=== PATIENT | female | born 1975 | race Caucasian/White ===

== ENCOUNTER 2018-10-24 19:30 | Emergency (ER) | payer SELFPAY ==
[2018-10-24] MEDS ORDERED: BENZONATATE 100 MG CAP PO ONE (19:42)
[2018-10-24] MEDS ORDERED: PROMETHAZINE HCL 25 MG TAB PO ONE (19:43)
[2018-10-24] MEDS ORDERED: ACETAMINOPHEN 500 MG TAB PO ONE (19:43)
--- NOTE | 2018-10-24 19:44 | EDPHY ---
H & P Stated Complaint: "COUGH UNTIL I PUKE, YELLOW SPUTUM" PUKE X 1, STARTED LAST NIGHT Time Seen by Provider: 10/24/18 19:40 HPI/ROS: HPI: This is a 43-year-old female who presents with Chief Complaint: "COUGH UNTIL I PUKE, YELLOW SPUTUM" PUKE X 1, STARTED LAST NIGHT Location: Chest Quality: Cough Duration: Since last night Signs and Symptoms: no fever, no nausea, no vomiting, no diarrhea, no urinary symptoms, no chest pain, no shortness of breath, no wheezing, + productive yellow sputum cough, no sore throat, no neck stiffness, no joint pain, no swollen glands, no ear pain, no rash Timing: Acute, intermittent episodes Severity: Moderate Context: Patient is generally healthy, nonsmoker, presents with sudden onset last night of productive cough of yellow sputum that is described as harsh and frequent. She reports that she coughs so hard that she vomited x1. She took Benadryl this afternoon with mild improvement in her symptoms. 2 weeks ago she was diagnosed with bronchitis and completed a 7 day course of Augmentin. She completed the Augmentin last week. She denies any recent long distance travel, history of lung disease. Modifying Factors: See above Comment: ROS: A comprehensive 10 system review of systems is otherwise negative aside from elements mentioned in the history of present illness. MEDICAL/SURGICAL/SOCIAL HISTORY: Medical history: Generally healthy. Does not take any regular medications. Surgical history: eye muscle surgery, cholecystectomy, sinus surgery Social history: . Taoist. Nonsmoker. Family history noncontributory. CONSTITUTIONAL: Nontoxic-appearing middle-aged white female, awake and alert, no obvious distress HEENT: Atraumatic and normocephalic, PERRL, EOMI. Nares patent; no rhinorrhea; no nasal mucosal edema. Tympanic membranes clear. Oropharynx clear, no exudate and moist pink mucosa. Airway patent. No lymphadenopathy. No meningismus. Cardiovascular: Normal S1/S2, regular rate, regular rhythm, without murmur rub or gallop. PULMONARY/CHEST: Symmetrical and nontender. Clear to auscultation bilaterally. Good air movement. No accessory muscle usage. Dry cough noted. ABDOMEN: Soft, nondistended, nontender, no rebound, no guarding, no peritoneal signs, no masses or organomegaly. No CVAT. EXTREMITIES: 2/2 pulses, strength 5/5, no deformities, no clubbing, no cyanosis or edema. NEUROLOGICAL: no focal neuro deficits. GCS 15. SKIN: Warm and dry, no erythema. no rash. Good capillary refill. Source: Patient Exam Limitations: No limitations - Personal History LMP (Females 10-55): 15-21 Days Ago Current Tetanus Diphtheria and Acellular Pertussis (TDAP): Yes - Medical/Surgical History Hx Asthma: No Hx Chronic Respiratory Disease: No Hx Diabetes: No Hx Cardiac Disease: No Hx Renal Disease: No Hx Cirrhosis: No Hx Alcoholism: No Hx HIV/AIDS: No Hx Splenectomy or Spleen Trauma: No Other PMH: eye muscle surgery, cholecystectomy, sinus surgery - Social History Smoking Status: Never smoked Constitutional: Initial Vital Signs Temperature (C) 36.8 C 10/24/18 19:34 Heart Rate 112 H 10/24/18 19:34 Respiratory Rate 20 10/24/18 19:34 Blood Pressure 133/82 H 10/24/18 19:34 O2 Sat (%) 96 10/24/18 19:34 O2 Delivery Mode Room Air Allergies/Adverse Reactions: No Known Allergies Allergy (Verified 10/24/18 19:33) Home Medications: Medication Instructions Recorded Codeine Phosphate/Guaifenesin 10 ml PO Q6 #240 ml 10/24/18 [Guaifen-Codeine 200-20 mg/10Ml] predniSONE [predniSONE TAPER] 10 mg PO DAILY 6 Days ea 10/24/18 Medical Decision Making - Diagnostics Imaging Results: Imaging Impressions Chest X-Ray 10/24/18 19:43 Impression: 1. Bronchitis/airways disease. 2. No definite focal pneumonia. ED Course/Re-evaluation: Vital signs reviewed and show no fever and mild tachycardia. Chest x-ray ordered and my read via PAC shows no opacity, no effusion, no pneumothorax. Patient given Tessalon Perles 200 mg, Tylenol 1000 mg, promethazine 6.25 mg Patient given a prescription for antitussives and steroid taper as I believe that this is viral in nature. This patient was seen under the supervision of my secondary supervising physician. I evaluated care for this patient independently. Differential Diagnosis: Differential diagnosis includes but is not limited to pneumonia, pleural effusion, pneumothorax, bronchitis, influenza. - Data Points Medications Given: Discontinued Medications Acetaminophen (Tylenol) 1,000 mg PO EDNOW ONE Stop: 10/24/18 19:44 Last Admin: 10/24/18 19:51 Dose: Not Given Benzonatate (Tessalon Pearles) 200 mg PO EDNOW ONE Stop: 10/24/18 19:43 Last Admin: 10/24/18 19:51 Dose: 200 mg Promethazine HCl (Phenergan) 6.25 mg PO ONCE ONE Stop: 10/24/18 19:44 Last Admin: 10/24/18 19:51 Dose: 6.25 mg Departure - Departure Disposition: Home, Routine, Self-Care Clinical Impression: Acute bronchitis, viral Condition: Good Instructions: Acute Bronchitis (ED) Additional Instructions: Rest as much as possible until you are feeling better. Consume a minimum of 8-10 glasses of water or electrolyte fluid replacement drinks that include Gatorade, Powerade, Pedialyte. Take cough syrup every 6 hr as needed for cough. Take Steroid taper as directed for bronchospasm. Chest x-ray today does not show any signs of pneumonia. It appears that you have a viral bronchitis and antibiotics are not indicated. Referrals: [facility],. [Clinic] - As per Instructions Prescriptions: Codeine Phosphate/Guaifenesin [Guaifen-Codeine 200-20 mg/10Ml] 10 ml PO Q6 #240 ml predniSONE [predniSONE TAPER] 10 mg PO DAILY 6 Days ea
[2018-10-24 20:34] VITALS: BP 137/77
== END 2018-10-24 20:33 | disposition home or self-care (01) ==
DX: J40 Bronchitis, not specified as acute or chronic (principal)

== ENCOUNTER 2018-11-01 11:17 | Emergency (ER) | payer MEDICAID ==
--- NOTE | 2018-11-01 11:40 | EDPHY ---
H & P Stated Complaint: [place] "pop" in abd 2 days ago with cough Time Seen by Provider: 11/01/18 11:26 HPI/ROS: CHIEF COMPLAINT: "I felt a pop in my abdomen" HISTORY OF PRESENT ILLNESS: 43-year-old female recovering from recent upper respiratory infection, notes she has had continued nonproductive cough, the other day when she was coughing aggressively she felt something"pop"in her right inguinal region patient continues to have pain this area with coughing. Bowel movements have been normal. Passing gas as normal. Urinary habits have been normal. No back or flank pain. No dizziness. No lightheadedness. No syncope or near syncope. No melena hematochezia. Tolerating full oral intake. PRIMARY CARE PROVIDER: REVIEW OF SYSTEMS: 10 systems reviewed and negative with the exception of the elements mentioned in the history of present illness PAST MEDICAL & SURGICAL HISTORY: No pertinent medical or surgical history SOCIAL HISTORY: Nonsmoker PHYSICAL EXAM (Prior to examination, patient consented to physical exam, hands were washed and my usual and customary physical exam procedures followed) 1) GENERAL: Well-developed, well-nourished, alert and oriented. Appears to be in no acute distress. 2) HEAD: Normocephalic, atraumatic 3) HEENT: Pupils equal, round, reactive to light bilaterally. Sclera anicteric. Nasopharynx, oropharynx, clear, no lesions. MoistDry mucous membranes. Ears bilaterally with normal tympanic membranes. 4) NECK: Full range of motion, no meningeal signs. 5) LUNGS: Clear auscultation bilaterally, no wheezes, no rhonchi, no retractions. 6) HEART: Regular rate and rhythm, no murmur, no heave, no gallop. 7) ABDOMEN (with nurse Ayla at bedside): No visible abnormality, no palpable mass, tender to palpation right inguinal region worsened patient bears down., 8) MUSCULOSKELETAL: Moving all extremities, no focal areas of tenderness, no obvious trauma. No peripheral edema or discoloration. 9) BACK: No CVA tenderness, no midline vertebral tenderness, no fluctuance, no step-off, no obvious trauma, no visual or palpable abnormality. 10) SKIN: No rash, no petechiae. 11) Psychiatric: Patient is oriented X 3, there is no agitation. DIFFERENTIAL DIAGNOSIS: In no particular order including but not limited to muscle strain, hernia, incarcerated hernia, acute appendicitis, ectopic - Personal History LMP (Females 10-55): 22-28 Days Ago Current Tetanus Diphtheria and Acellular Pertussis (TDAP): Yes - Medical/Surgical History Hx Asthma: No Hx Chronic Respiratory Disease: No Hx Diabetes: No Hx Cardiac Disease: No Hx Renal Disease: No Hx Cirrhosis: No Hx Alcoholism: No Hx HIV/AIDS: No Hx Splenectomy or Spleen Trauma: No Other PMH: eye muscle surgery, cholecystectomy, sinus surgery - Social History Smoking Status: Never smoked Constitutional: Initial Vital Signs Temperature (C) 36.9 C 11/01/18 11:18 Heart Rate 79 11/01/18 11:18 Respiratory Rate 16 11/01/18 11:18 Blood Pressure 134/8 H 11/01/18 11:18 O2 Sat (%) 97 11/01/18 11:18 O2 Delivery Mode Room Air Allergies/Adverse Reactions: No Known Allergies Allergy (Verified 11/01/18 11:18) Home Medications: Medication Instructions Recorded Benzonatate [Tessalon Pearles (RX)] 200 mg PO TID PRN #15 cap 11/01/18 Medical Decision Making - Diagnostics Imaging Results: Images reviewed myself ED Course/Re-evaluation: Patient was re-evaluated with serial examinations. I consulted at 1:15 p.m. regarding the patient's rectus abdominis hematoma. He reviewed the images. Patient with normal vital signs, normal H&H, pain controlled. He recommended abdominal binder if this provided relief for the patient and no further intervention. Today is Sunday. Patient would like to follow up next week in given Dr. Valles follow-up information. If she develops dizziness, syncope or near syncope to return to the ER. Recommend avoiding physically exertional activities. She feels comfortable being discharged all questions and concerns addressed by myself. Care of patient under supervision of secondary supervising physician Dr Montes . - Data Points Laboratory Results: Laboratory Results 11/01/18 11:44 11/01/18 11:44 Departure - Departure Disposition: Home, Routine, Self-Care Clinical Impression: Abdominal wall hematoma Condition: Good Instructions: Hematoma (ED) Additional Instructions: Avoid physically exertional activities. If you develop lightheadedness, worsening pain, seek immediate medical attention. Do not take any blood thinning medications. Referrals: Arnaldo Rangel MD [Medical Doctor] - 2-3 days, call for appt. Prescriptions: Benzonatate [Tessalon Pearles (RX)] 200 mg PO TID PRN #15 cap PRN Reason: Cough, Moderate
[2018-11-01 12:01] LABS: PLATELET COUNT 307 10^3/uL (150-400)
[2018-11-01] MEDS ORDERED: IOPAMIDOL (ISOVUE-300) 100 ML BTL ONE (12:28)
[2018-11-01 14:12] VITALS: BP 129/65
== END 2018-11-01 14:11 | disposition home or self-care (01) ==
DX: M79.81 Nontraumatic hematoma of soft tissue (principal)
CPT/HCPCS: Q9967

== ENCOUNTER 2019-02-25 03:41 | Emergency (ER) | payer MEDICAID ==
[2019-02-25 03:46] VITALS: BP 113/72
--- NOTE | 2019-02-25 03:57 | EDPHY ---
H & P Stated Complaint: R FA BUMP/"IV PLACED IN AREA JEROME 22" Time Seen by Provider: 02/25/19 03:48 HPI/ROS: Chief Complaint: Bump on left forearm HPI: 43-year-old woman had an upper lower endoscopy on the 31 of January. She had an IV placed in her left forearm for that procedure. Patient had some bruising at that site following the procedure. Was never red or warmth. This morning she noticed a bump her left forearm a became concerned about a possible blood clot. No arm swelling. No redness. No discoloration. No fevers or chills. Is mildly achy. ROS: 10 systems were reviewed and were negative except those elements noted in the HPI. PMH: Denies Social History: No smoking, no alcohol, no recreational drug use Family History: non-contributory Physical Exam: General: Awake, alert, no acute distress Left arm. Patient has a small 5 x 5 mm lesion on her left forearm along with a superficial vein. Is freely mobile. It is not fluctuant. Is not pointing. It is minimally tender. There is no erythema. Is not warm to touch. Is a firm nodule. Skin: No rash - Personal History LMP (Females 10-55): 22-28 Days Ago - Medical/Surgical History Hx Asthma: No Hx Chronic Respiratory Disease: No Hx Diabetes: No Hx Cardiac Disease: No Hx Renal Disease: No Hx Cirrhosis: No Hx Alcoholism: No Hx HIV/AIDS: No Hx Splenectomy or Spleen Trauma: No Other PMH: eye muscle surgery, cholecystectomy, sinus surgery - Social History Smoking Status: Never smoked Constitutional: Initial Vital Signs Temperature (C) 36.6 C 02/25/19 03:43 Heart Rate 92 02/25/19 03:43 Respiratory Rate 16 02/25/19 03:43 Blood Pressure 113/72 02/25/19 03:43 O2 Sat (%) 96 02/25/19 03:43 O2 Delivery Mode Room Air Allergies/Adverse Reactions: No Known Allergies Allergy (Verified 11/01/18 11:18) Home Medications: Medication Instructions Recorded Benzonatate [Tessalon Pearles (RX)] 200 mg PO TID PRN #15 cap 11/01/18 Medical Decision Making ED Course/Re-evaluation: Patient presenting with concerns about a bump her left forearm. She has a very small firm nodule along the vein which is consistent with scar tissue from her IV site placement. There is no evidence of thrombus. There is no erythema. She has normal perfusion distally. No signs of infection. The patient has been reassured. Will discharge with follow-up her primary care physician as needed. Departure - Departure Disposition: Home, Routine, Self-Care Clinical Impression: Scar tissue Condition: Good Instructions: Normal Exam (ED) Additional Instructions: Follow up with primary care physician for any concerns. Referrals: Carmen Solorzano PA [Primary Care Provider] - As per Instructions
== END 2019-02-25 03:59 | disposition home or self-care (01) ==
DX: L90.5 Scar conditions and fibrosis of skin (principal)

== ENCOUNTER 2019-02-27 02:29 | Emergency (ER) | payer MEDICAID ==
--- NOTE | 2019-02-27 02:46 | EDPHY ---
H & P Stated Complaint: right arm lump has been seen for this before Time Seen by Provider: 02/27/19 02:46 HPI/ROS: HPI CHIEF COMPLAINT: Bump right arm. HISTORY OF PRESENT ILLNESS: 43-year-old female, otherwise healthy denies any significant medical history presents emergency room the small area of induration to her right arm, no redness, no drainage, no warmth, however does cause her some discomfort. She states that she was out in [facility] and this bothers her so she went to a local emergency room in [place] where they performed an ultrasound and she was told initially they thought it was a superficial clot however there was some concern that may have been a foreign body. However on repeat ultrasound in at the emergency room she was told that cannot identify or find a foreign body. This now concerned her greatly and so she decided come the emergency room [facility] for further evaluation of this. She did have a IV catheter placed in this area for her EGD. She denies any significant pain or fever. Has localized tenderness and discomfort to the right forearm. Past Medical History: Denies significant medical history Past Surgical History: Denies significant surgical history however recent EGD. Social History: Denies drugs alcohol tobacco. Family History: Noncontributory ROS REVIEW OF SYSTEMS: 10 Systems were reviewed and negative with the exception of the elements mentioned in the history of present illness. Exam Constitutional triage nursing summary reviewed, vital signs reviewed, awake/ alert. Eyes normal conjunctivae and sclera, EOMI, PERRLA. HENT normal inspection, atraumatic, moist mucus membranes, no epistaxis, neck supple/ no meningismus, no raccoon eyes. Respiratory clear to auscultation bilaterally, normal breath sounds, no respiratory distress, no wheezing. Cardiovascular rate normal, regular rhythm, no murmur, no edema, distal pulses normal. Gastrointestinal soft, non-tender, no rebound, no guarding, normal bowel sounds, no distension, no pulsatile mass. Genitourinary no CVA tenderness. Musculoskeletal right upper extremity: Good distal pulse, good cap refill, normal sensation, no compartment syndrome. On the proximal right forearm of volar side there is a very small area of induration less than 1 cm. No redness no warmth no fluctuance. no midline vertebral tenderness, full range of motion, no calf swelling, no tenderness of extremities, no meningismus, good pulses, neurovascularly intact. Skin pink, warm, & dry, no rash, skin atraumatic. Neurologic awake, alert and oriented x 3, AAOx3, moves all 4 extremities equally, motor intact, sensory intact, CN II-XII intact, normal cerebellar, normal vision, normal speech. Psychiatric normal mood/affect. Heme/Lymph/Immune no lymphadenopathy. Differential Diagnosis: Includes but is not limited to in a particular order thrombophlebitis, phlebitis, foreign body, abscess Medical Decision Making: Plan for this patient ultrasound right upper extremity. Re-evaluation: Ultrasound of the right upper extremity performed for an area of induration, short segment of thrombosed superficial vein. Source: Patient - Personal History LMP (Females 10-55): 15-21 Days Ago Current Tetanus/Diphtheria Vaccine: Yes Current Tetanus Diphtheria and Acellular Pertussis (TDAP): Yes - Medical/Surgical History Hx Asthma: No Hx Chronic Respiratory Disease: No Hx Diabetes: No Hx Cardiac Disease: No Hx Renal Disease: No Hx Cirrhosis: No Hx Alcoholism: No Hx HIV/AIDS: No Hx Splenectomy or Spleen Trauma: No Other PMH: eye muscle surgery, cholecystectomy, sinus surgery - Social History Smoking Status: Never smoked Constitutional: Initial Vital Signs Temperature (C) 36.9 C 02/27/19 02:34 Heart Rate 83 02/27/19 02:34 Respiratory Rate 16 02/27/19 02:34 Blood Pressure 123/71 H 02/27/19 02:34 O2 Sat (%) 98 02/27/19 02:34 O2 Delivery Mode Room Air Allergies/Adverse Reactions: No Known Allergies Allergy (Verified 02/27/19 02:37) Home Medications: Medication Instructions Recorded Flonase Nasal Roby 02/27/19 Departure - Departure Disposition: Home, Routine, Self-Care Clinical Impression: Phlebitis Condition: Good Instructions: Phlebitis (ED), Superficial Thrombophlebitis (ED) Additional Instructions: 1. Recommend warm compresses 2 to 3 times a day for 20 min 2. Recommend full-dose aspirin 3. Follow up with your primary care doctor 4. Return to the emergency room if develops worsening pain, swelling, redness, fever, not doing well Referrals: Carmen Solorzano PA [Primary Care Provider] - As per Instructions
[2019-02-27 05:34] VITALS: BP 122/71
== END 2019-02-27 05:34 | disposition home or self-care (01) ==
DX: I80.8 Phlebitis and thrombophlebitis of other sites (principal)

== ENCOUNTER 2019-03-06 09:07 | Emergency (ER) | payer MEDICAID | END 2019-03-06 09:36 | disposition home or self-care (01) | DX: I82.611 Acute embolism and thrombosis of superficial veins of right upper extremity (principal) ==